=== PATIENT | female | born 1990 | race Caucasian/White ===

== ENCOUNTER 2018-10-26 06:05 | Day surgery (SDC) | payer OTHER ==
[~2018-10-26] VITALS: Ht 157.5 cm; Wt 98.9 kg
[2018-10-26 06:18] LABS: HCG,QUAL RESULT NEGATIVE (NEGATIVE)
[2018-10-26] MEDS ORDERED: ONDANSETRON HCL 4 MG/2 ML VIAL IVP ONE (07:40)
[2018-10-26] MEDS ORDERED: SEVOFLURANE 15 MIN GAS INH ONE (07:40)
[2018-10-26] MEDS ORDERED: KETOROLAC TROMETHAMINE 30 MG VIAL IVP ONE (07:40)
[2018-10-26] MEDS ORDERED: ROCURONIUM BROMIDE 10 MG/ML (ZEMURON) IV ONE (07:40)
[2018-10-26] MEDS ORDERED: LR 1,000 ML IV.SOLN IV ONE (07:40)
[2018-10-26] MEDS ORDERED: fentaNYL CITRATE 250 MCG/5 ML AMP IV ONE (07:40)
[2018-10-26] MEDS ORDERED: NS IRRIG SOLN 1000 ML IR ONE (07:40)
[2018-10-26] MEDS ORDERED: MIDAZOLAM HCL 5 MG/5 ML VIAL IVP ONE (07:40)
[2018-10-26] MEDS ORDERED: PROPOFOL 200MG/ 20ML VIAL (DIPRIVAN) IV ONE (07:40)
[2018-10-26] MEDS ORDERED: DEXAMETHASONE SOD PHOSPHATE 4 MG/ML VIAL IVP ONE (07:40)
[2018-10-26] MEDS ORDERED: BUPIVACAINE /EPINEPHRINE/PF 0.25% 30 ML VIAL INJ ONE (07:40)
[2018-10-26] MEDS ORDERED: NS 1000 ML IV.SOLN IV ONE (07:40)
[2018-10-26] MEDS ORDERED: IOHEXOL 50 ML IV ONE (07:45)
[2018-10-26] MEDS ORDERED: LR 1,000 ML IV SCH (08:42)
[2018-10-26] MEDS ORDERED: HYDROmorphone 2 MG/ML VIAL IVP PRN ×2 (08:45)
[2018-10-26] MEDS ORDERED: MEPERIDINE HCL/PF 25 MG/ML DISP.SYRIN IVP PRN (08:45)
[2018-10-26] MEDS ORDERED: HYDROmorphone 1 MG INJ. 1 MG/ML AMPUL IVP PRN ×2 (08:45→11:45)
[2018-10-26] MEDS ORDERED: HYDROmorphone 1 MG INJ. 1 MG/ML AMPUL ONE (09:54)
[2018-10-26 10:32] VITALS: BP_SYST 123
[2018-10-26] MEDS ORDERED: D5/0.45 NS 1,000 ML IV SCH (10:45)
[2018-10-26] MEDS ORDERED: HYDROcodone/ACETAMIN 5-325 MG TAB (NORCO/ VICODIN) PO PRN ×2 (11:45)
== END 2018-10-26 14:25 | disposition home or self-care (01) ==
LOC: SDS 06:05 → SMU 06:06 → SDS 14:25
PROVIDERS: ATTEND Colon & Rectal Surgery
DX: K80.10 Calculus of gallbladder with chronic cholecystitis without obstruction (principal); Z88.0 Allergy status to penicillin; E66.9 Obesity, unspecified; Z79.899 Other long term (current) drug therapy
CPT/HCPCS: 47563; 74300; 84703; 88304; C1727; J1100; J1170; J1885; J2250; J2405; J2704; J3010; J3490; J7030; J7120; Q9967; 76000